=== PATIENT | female | born 1945 | race Caucasian/White ===

== ENCOUNTER → 2017-11-16 | Day surgery (SDC) | payer MEDICARE, SELFPAY | END | disposition home or self-care (01) | PROVIDERS: PCP Family Medicine; Visit Provider Ophthalmology | DX: H25.12 Age-related nuclear cataract, left eye (principal); I10 Essential (primary) hypertension; G51.0 Bell's palsy | CPT/HCPCS: J2704; J2765 ==

== ENCOUNTER → 2017-12-07 11:04 | Day surgery (SDC) | payer MEDICARE, SELFPAY ==
[2017-12-07] MEDS: PROPARACAINE 0.5% OPHTH SOL 2 DROPS EYE-OP (12:15)
[2017-12-07] MEDS: CYCLOPENTOLATE 1% OPHTH 2.5 DROPS, PHENYLEPHRINE 2.5% OPHTH 2.5 DROPS, TROPICAMIDE 1% O... EYE-OP ×3 (12:23→12:48)
[2017-12-07 12:29] VITALS: BMI 24.7
--- NOTE | 2017-12-07 12:45 | PM.PREOP ---
Pre-operative Note Interval Note Pre-op Check: History & Physical Reviewed H&P completed within 30 days and has changed as indicated here:: No change.
--- NOTE | 2017-12-07 12:45 | PM.OP.1 ---
Procedure & Clinicians Procedure: Date of service: December 07, 2017 Preoperative diagnoses: 1. Right nuclear sclerotic Cataract Postoperative diagnoses: 1. Cataract nuclear sclerotic Procedure: Phacoemulsification with posterior chamber intraocular lens implant Surgeon: Ghislaine Pope MD Complications: None Specimen: None Implant: ZCBOO +22.0 Blood loss: None Anesthesia: Retrobulbar with monitored standby Anesthesiologist: Cosme Macedo Description of procedure: Patient is a 72year old female year old with decreased vision due to cataract which is affecting activities of daily living. She wants surgery to improve vision. She was taken to the operating room and given IV sedation. A retrobulbar block insert consisting of 6 cc of 2% xylocaine without epinephrine mixed half and half with 0.5% Marcaine with 1 cc of hyaluronidase added is placed between the medial and lateral 1/3 [] of the inferior orbital rim. Lid akinesia is obtain with 1% xylocaine with epinephrine infiltrated along the lid margin. The eye is manually massaged for 30 sec, prepped using Betadine solution, and draped in the usual sterile fashion. Temporal approach was made, a 1 mm side-port incision was made at the 7:30 position. Phenylephrine 1.5% mixed with 1% xylocaine 0.2 cc was placed into the anterior chamber. Viscoat followed by Elle was then placed. A 2.6 mm clear incision with a 2.6 mm blade was placed at the 170 degree meridian. A 360 degree capsulorrhexis style capsulotomy was then performed with a cystitome needle on a Healon. Hydrodelineation and hydrodissection were performed. The phacoemulsification unit is introduced, and sculpting notice used to groove the central lens. It is then removed in chopping mode. Epi nucleus is removed with epinuclear mode and irrigation aspiration was used to remove the peripheral cortex. The posterior capsule is polished. The intraocular lens is selected, inspected, power confirmed, and placed in the posterior chamber. The pupil was constricted. The wound was stromally hydrated and tested for leaks, there was none and it was left sutureless. Vigamox 0.1 cc was placed into the anterior chamber. Kenalog 0.2 cc was placed in the superior subconjunctival space. A drop of antibiotic and was placed and the eye was patched and shielded. The patient was stable and returned to the recovery room in excellent condition. Dictated by: Ghislaine Pope MD Copy to: [facility] next December 08, 2007 Same procedure as scheduled: Yes Surgeon: Ghislaine Pope
[2017-12-07 12:46] VITALS: BP 142/75; PULSE 70; RESP 16; TEMP 36.2; O2SAT 100
--- NOTE | 2017-12-07 13:59 | SUR.OPER ---
Supine on eye stretcher, head on extension cradle secured with tape. Arms tucked at sides with blanket. Pillow under knees.
[2017-12-07] MEDS: CARBACHOL 1.5 ML VIAL INJ (14:04)
[2017-12-07] MEDS: CHONDROIDTIN/SOD HYALURONATE 1.05 ML SYRINGE INTRAOCULA (14:04)
[2017-12-07] MEDS: MOXIFLOXACIN OPHTH DROPS 3 ML BOTTLE 2 DROPS INJ (14:05)
[2017-12-07] MEDS: LIDOCAINE 1% W/EPI INJ 20 ML INJ (14:05)
[2017-12-07] MEDS: HYALURONATE SODIUM 10 MG/ML SYRINGE INJ (14:05)
[2017-12-07] MEDS: NEOMYCIN/POLY/DEX OPHTH OINT 1 APPLIC EYE-RIGHT (14:05)
[2017-12-07] MEDS: PHENYLEPHRINE/LIDOCAINE 3ML VIAL (OR) EYE-OP (14:06)
[2017-12-07] MEDS: OFLOXACIN 0.3% OPHTH 5 ML 2 DROPS EYE-RIGHT (14:06)
[2017-12-07] MEDS: BALANCED SALT IRRIG SOLN NO.2 500 ML, EPINEPHrine 1 MG IRR (14:07)
[2017-12-07] MEDS: TRIAMCINOLONE 50 MG/5 ML VIAL INJ (14:07)
[2017-12-07] MEDS: LIDOCAINE 2% 4 ML, BUPIVACAINE 0.5% (PF) 4 ML, HYALURONIDASE 150 UNIT INJ (14:08)
[2017-12-07 14:35] VITALS: BP 172/77; PULSE 67; RESP 16; TEMP 37.2; O2SAT 100
--- NOTE | 2017-12-07 18:12 | PM.DS.1 ---
History of Present Illness Chief complaint: 33705/right eye Narrative: Abhijit Jean is a 72 year old female Discharge Providers Primary care physician: Grupo Nixon MD Discharge provider: Ghislaine Pope MD Summary Time Spent with Patient Total time spent providing and/or coordinating discharge services: Exam Vital Signs (past 8 hours): Vital Signs - 8 hr 12/07/17 12:46 12/07/17 14:35 Temperature 97.2 F L 99 F Pulse Rate 70 67 Respiratory Rate 16 16 Blood Pressure 142/75 H 172/77 H Pulse Oximetry 100 100 Pulse Oximetry 100 Oxygen Delivery Method Room Air Discharge Plan Discharge Plan Patient Disposition: Home, Self-Care Discharge comment: See instruction sheet. Discharge Med Rec/Prescriptions Prescriptions: No Action cholecalciferol (vitamin D3) [Vitamin D3] 2,000 UNIT tablet 2,000 mg PO Q DAY Qty: 0 RF: 0 hydrochlorothiazide 12.5 MG capsule 12.5 mg PO QDAY Qty: 90 RF: 1 estradiol 0.5 MG tablet 0.5 mg PO QDAY Qty: 60 RF: 2 bupropion HCl [Wellbutrin SR] 150 MG tablet extended release 12 hr 150 mg PO BID Qty: 180 RF: 1 atorvastatin [Lipitor] 40 MG tablet 40 mg PO HS Qty: 90 RF: 1 amlodipine [Norvasc] 5 MG tablet 5 mg PO QDAY Qty: 90 RF: 1 oxybutynin chloride 5 MG tablet 5 mg PO DAILY RF: 0 Discharge Orders: Discharge (Order); Ordered 12/07/17 Ordered By: Ghislaine Pope Visit Report/Discharge Packet Stand Alone Forms: Surgery Discharge Discharge Data Primary Care Provider: Grupo Nixon Attending Provider: Ghislaine Ppoe
--- NOTE | 2017-12-07 18:15 | P.DS_ITS ---
History of Present Illness Chief complaint: [id number]/right eye Narrative: Abhijit Jean is a 72 year old female Discharge Providers Primary care physician: Grupo Nixon MD Discharge provider: Ghislaine Pope MD Summary Time Spent with Patient Total time spent providing and/or coordinating discharge services: Exam Vital Signs (past 8 hours): Vital Signs - 8 hr 3 12/07/17 12:46 12/07/17 14:35 Temperature 97.2 F L 99 F Pulse Rate 70 67 Respiratory Rate 16 16 Blood Pressure 142/75 H 172/77 H Pulse Oximetry 100 100 Pulse Oximetry 100 Oxygen Delivery Method Room Air Discharge Plan Discharge Plan Patient Disposition: Home, Self-Care Discharge comment: See instruction sheet. Discharge Med Rec/Prescriptions Prescriptions: No Action cholecalciferol (vitamin D3) [Vitamin D3] 2,000 UNIT tablet 2,000 mg PO Q DAY Qty: 0 RF: 0 hydrochlorothiazide 12.5 MG capsule 12.5 mg PO QDAY Qty: 90 RF: 1 estradiol 0.5 MG tablet 0.5 mg PO QDAY Qty: 60 RF: 2 bupropion HCl [Wellbutrin SR] 150 MG tablet extended release 12 hr 150 mg PO BID Qty: 180 RF: 1 atorvastatin [Lipitor] 40 MG tablet 40 mg PO HS Qty: 90 RF: 1 amlodipine [Norvasc] 5 MG tablet 5 mg PO QDAY Qty: 90 RF: 1 oxybutynin chloride 5 MG tablet 5 mg PO DAILY RF: 0 Discharge Orders: Discharge (Order); Ordered 12/07/17 Ordered By: Ghislaine Pope Visit Report/Discharge Packet Stand Alone Forms: Surgery Discharge Discharge Data Primary Care Provider: Grupo Nixon Attending Provider: Ghislaine Pope
== END | disposition home or self-care (01) ==
PROVIDERS: PCP Family Medicine; Visit Provider Ophthalmology
DX: H25.11 Age-related nuclear cataract, right eye (principal); I10 Essential (primary) hypertension; G51.0 Bell's palsy
CPT/HCPCS: J0171; J2704; J3301; J3470

== ENCOUNTER → 2018-11-21 09:37 | Outpatient (CLI) | payer MEDICARE, SELFPAY ==
--- NOTE | 2018-11-21 | DI.MG.S_ITS ---
BILATERAL DIGITAL SCREENING MAMMOGRAM 3D/2D WITH CAD: 11/21/2018 CLINICAL: Routine screening. Comparison is made to exams dated: 11/02/2016 mammogram, 10/30/2015 mammogram, and 07/31/2013 mammogram - [facility]. The tissue of both breasts is extremely dense, which lowers the sensitivity of mammography. Current study was also evaluated with a Computer Aided Detection (CAD) system. No significant masses, calcifications, or other findings are seen in either breast. There has been no significant interval change. IMPRESSION: NEGATIVE There is no mammographic evidence of malignancy. A 1 year screening mammogram is recommended. This exam was interpreted at Station ID: [id number]. NOTE: For mammograms, a report in lay terms will be sent to the patient. Approximately 15% of breast malignancies will not be visualized mammographically. In the management of a palpable breast mass, a negative mammogram must not discourage biopsy of a clinically suspicious lesion. Electronically Signed By: Jonn bennett/fran:11/21/2018 13:07:48 letter sent: Normal Exam ACR BI-RADS Category 1: Negative 3341F
== END ==
PROVIDERS: PCP Family Medicine; Visit Provider Family Medicine
DX: Z12.31 Encounter for screening mammogram for malignant neoplasm of breast (principal)
CPT/HCPCS: 77063; 77067

== ENCOUNTER → 2020-01-13 13:59 | Outpatient (CLI) | payer MEDICARE, SELFPAY ==
[2020-01-14 08:54] LABS: COVID19 Sendout NOT DETECTED (Not Detect)
== END ==
PROVIDERS: PCP Family Medicine; Visit Provider Physician Assistant
DX: Z01.812 Encounter for preprocedural laboratory examination (principal)
CPT/HCPCS: 87635

== ENCOUNTER → 2020-01-16 08:02 | Outpatient (CLI) | payer MEDICARE, SELFPAY ==
--- NOTE | 2020-01-16 18:51 | DI.NM.S_ITS ---
DATE OF SERVICE: 01/16/2020 PROCEDURE: Exercise perfusion study. INDICATIONS: Exertional shortness of breath, chest discomfort, underlying diabetes mellitus, hypertension . RADIOPHARMACEUTICAL: 26.5 millicurie technetium-99m Myoview IV was injected at stress and 9.6 millicurie technetium-99m Myoview intravenous was injected at rest. It was one day protocol. CARDIAC STRESS: The patient underwent exercise perfusion study under the supervision of an attending staff. She walked on Will protocol for 8 minutes 11 seconds, achieved 92 percent of target heart rate, functional aerobic impairment of -52 percent and 9.3 METS of workload. Baseline blood pressure 132/80. Peak blood pressure 210/90, suggestive of mild hypertensive blood pressure response. Baseline EKG revealed sinus rhythm. During stress, there were no convincing ischemic changes. In late recovery, there were occasional PVCs and couplets without any ventricular tachycardia. No chest pain. Had moderate shortness of breath. RAW DATA: Breast shadow was seen. GATED STUDY: Stress LV ejection fraction 80 percent without any obvious wall motion abnormalities. Resting end-diastolic volume 83 mL. TID ratio is 0.92, which is within normal limits. Lung/heart ratio 0.28, which is within normal limits. MYOCARDIAL PERFUSION: Stress supine and resting supine images revealed a small size, minimally decreased perfusion of distal anterior wall and anterior apex, which got resolved during prone images, suggestive of breast tissue attenuation artifact. No convincing ischemia or infarction pattern is seen. CONCLUSION: I will call this study likely normal myocardial perfusion study with evidence of breast tissue attenuation artifact, which got improved during prone images. Excellent exercise capacity. Functional aerobic impairment -52 percent. Mildly hypertensive blood pressure response. No significant sustained arrhythmias seen other than some ventricular ectopy and couplets in late recovery without any sustained arrhythmias. Overall, this is a low-risk myocardial perfusion scan. Abhijit Jean VADIM/mckenzie/brian doc#: [id number]/job#: [id number] dd: 01/16/2020 16:41:00 dt: 01/16/2020 17:09:00 DICTATING MD/COPIES TO: Nabeel Guadalupe MD COPIES MNE: ERNESTO;
== END ==
PROVIDERS: PCP Family Medicine; Referring Provider Family Medicine; Visit Provider Family Medicine
DX: R07.89 Other chest pain (principal); R06.09 Other forms of dyspnea; R06.02 Shortness of breath; E11.9 Type 2 diabetes mellitus without complications; I10 Essential (primary) hypertension
CPT/HCPCS: 78452; 93017; A9502

== ENCOUNTER → 2020-02-12 11:26 | Outpatient (CLI) | payer MEDICARE, SELFPAY ==
--- NOTE | 2020-02-12 | DI.MG.S_ITS ---
BILATERAL DIGITAL SCREENING MAMMOGRAM 3D/2D WITH CAD: 02/12/2020 CLINICAL: Routine screening. Comparison is made to exams dated: 11/21/2018 mammogram, 11/02/2016 mammogram, and 10/30/2015 mammogram - [facility]. The tissue of both breasts is extremely dense, which lowers the sensitivity of mammography. Current study was also evaluated with a Computer Aided Detection (CAD) system. There is an oval asymmetry with a spiculated margin in the right breast middle depth central to the nipple seen on the craniocaudal view only. Finding is seen only on tomography. This is more prominent. No other significant masses, calcifications, or other findings are seen in either breast. IMPRESSION: INCOMPLETE: NEEDS ADDITIONAL IMAGING EVALUATION The oval asymmetry in the right breast is indeterminate. Additional views with possible ultrasound are recommended. This exam was interpreted at Station ID: [id number]. NOTE: For mammograms, a report in lay terms will be sent to the patient. Approximately 15% of breast malignancies will not be visualized mammographically. In the management of a palpable breast mass, a negative mammogram must not discourage biopsy of a clinically suspicious lesion. Electronically Signed By: Eula penn/fran:02/12/2020 17:33:42 letter sent: Additional Imaging Needed ACR BI-RADS Category 0: Incomplete 3340F
== END ==
PROVIDERS: PCP Family Medicine; Referring Provider Family Medicine; Visit Provider Family Medicine
DX: Z12.31 Encounter for screening mammogram for malignant neoplasm of breast (principal)
CPT/HCPCS: 77063; 77067

== ENCOUNTER → 2020-03-05 09:49 | Outpatient (CLI) | payer MEDICARE, SELFPAY ==
[2020-03-06 06:44] LABS: COVID19 Sendout Not Detected (Not Detect)
== END ==
PROVIDERS: PCP Family Medicine; Visit Provider Nurse Practitioner
DX: Z03.818 Encounter for observation for suspected exposure to other biological agents ruled out (principal)
CPT/HCPCS: 87635

== ENCOUNTER → 2020-03-20 13:44 | Outpatient (CLI) | payer MEDICARE, SELFPAY ==
--- NOTE | 2020-03-20 14:07 | DI.MG.S_ITS ---
Patient Name: MAGGY CHRISTIANSON date: 1945 Sex: F Attending Physician: Hussain Indications: Date: 03/20/2020 13:55 At the request of: JOEY MCDONNELL Procedure: MM special view RT UNILATERAL RIGHT DIGITAL DIAGNOSTIC MAMMOGRAM 3D/2D WITH ADDITIONAL VIEWS: 03/20/2020 CLINICAL: Additional evaluation requested from prior study. Comparison is made to exams dated: 02/12/2020 mammogram, 11/21/2018 mammogram, and 11/02/2016 mammogram - [facility]. The tissue of right breast is extremely dense, which lowers the sensitivity of mammography. The oval equal density asymmetry with an indistinct margin in the right breast middle depth lateral region seen on the craniocaudal view only is less prominent on additional views and appears similar to the prior studies. No other significant masses or calcifications are seen in the breast. IMPRESSION: BENIGN There is no mammographic evidence of malignancy. A 1 year screening mammogram is recommended. This exam was interpreted at Station ID: [id number]. NOTE: For mammograms, a report in lay terms will be sent to the patient. Approximately 15% of breast malignancies will not be visualized mammographically. In the management of a palpable breast mass, a negative mammogram must not discourage biopsy of a clinically suspicious lesion. Electronically Signed By: Vinicius Lopez M.D. ddyvette/:03/20/2020 14:38:06 letter sent: Normal Exam ACR BI-RADS Category 2: Benign Finding(s) 3342F
== END ==
PROVIDERS: PCP Family Medicine; Referring Provider Family Medicine; Visit Provider Family Medicine
DX: R92.8 Other abnormal and inconclusive findings on diagnostic imaging of breast (principal); N64.89 Other specified disorders of breast
CPT/HCPCS: 77065; G0279

== ENCOUNTER → 2021-05-27 17:02 | Outpatient (CLI) | payer MEDICARE, SELFPAY ==
--- NOTE | 2021-05-27 17:04 | DI.RAD.S_ITS ---
PROCEDURE: XR LUMBAR SPINE MIN 4V INDICATIONS: Low back pain right lower extremity pain TECHNIQUE: 5 views of the lumbar spine were acquired, including bilateral oblique views. COMPARISON: None. FINDINGS: Bones: 5 nonrib-bearing vertebrae are present. Facet arthrosis, causing neural foraminal narrowing at L5-S1. No vertebral body compression fractures. No suspicious bony lesions. A right hip arthroplasty is partially imaged. Soft tissues: Overlying bowel gas pattern is normal. No suspicious soft tissue calcifications. Calcified atheromatous change of the aorta. Oblique images: No pars defects. IMPRESSION: No acute osseous abnormality. Dictated by: Jeff Patten M.D. on 05/28/2021 at 8:36 Approved by: Jeff Patten M.D. on 05/28/2021 at 8:50
== END ==
PROVIDERS: PCP Family Medicine; Referring Provider Physical Medicine & Rehabilitation; Visit Provider Physical Medicine & Rehabilitation
DX: M47.817 Spondylosis without myelopathy or radiculopathy, lumbosacral region (principal); M70.61 Trochanteric bursitis, right hip; M48.07 Spinal stenosis, lumbosacral region; Z96.641 Presence of right artificial hip joint
CPT/HCPCS: 72110; 99214